=== PATIENT | female | born 1975 | race American Indian/Alaskan Native ===

== ENCOUNTER 2022-09-20 17:15 | Emergency (ER) | payer SELFPAY ==
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
[2022-09-20] MEDS ORDERED: MOTRIN 600 MG ONE (17:40)
[2022-09-20] MEDS ORDERED: Cortisporin Eye Drops OP ONE (17:40)
[2022-09-20] MEDS ORDERED: Cortisporin Eye Drops OP SCH (17:53)
[2022-09-20 18:18] VITALS: BP 119/79; PULSE 84; O2SAT 95
[2022-09-21] MEDS ORDERED: MOTRIN 600 MG PO ONE (17:40)
== END 2022-09-20 18:18 | disposition home or self-care (01) ==
LOC: ED 17:15
DX: T22.191A Burn of first degree of multiple sites of right shoulder and upper limb, except wrist and hand, initial encounter (principal); T23.191A Burn of first degree of multiple sites of right wrist and hand, initial encounter; T26.02XA Burn of left eyelid and periocular area, initial encounter; T26.01XA Burn of right eyelid and periocular area, initial encounter; X08.8XXA Exposure to other specified smoke, fire and flames, initial encounter; Y93.G2 Activity, grilling and smoking food
CPT/HCPCS: 99282; A9270-GY